=== PATIENT | male | born 1935 | race Caucasian/White ===

== ENCOUNTER 2018-08-10 15:33 | Inpatient (IN) | payer MEDICARE ==
[~2018-08-10] VITALS: Ht 177.8 cm; Wt 65.8 kg
--- NOTE | 2018-08-10 15:35 | NUR ---
AAOX3, BIBRA 88 FROM [place] C/O STERNAL PAIN S/P HEIMLICH MANEUVER, PATIENT WAS CHOKING WHILE EATING HIS OATMEAL, MD CAME AND PERFORMED HEIMLICH MANEUVER. BRUISE NOTED IN THE STERNUM AREA. RR IS EVEN AND UNLABORED WITH NAD NOTED. AWAITING MD FOR EVAL.
[2018-08-10] MEDS ORDERED: MORPHINE SULFATE INJ 4 MG/ML DISP.SYRIN ONE ×2 (16:00→18:01)
[2018-08-10] MEDS ORDERED: MORPHINE SULFATE INJ 2 MG/ML DISP.SYRIN IM ONE (16:00)
[2018-08-10] MEDS ORDERED: HYDROCODONE/APAP 5/325MG 1 EACH TABLET PO ONE (16:00)
--- NOTE | 2018-08-10 16:07 | NUR ---
PATIENT TRANSPORTED FOR CT OF THE CHEST
--- NOTE | 2018-08-10 16:19 | NUR ---
PATIENT DESAT TO 93% FROM 98%. PATIENT PLACED ON NC AT 2L/MIN.
[2018-08-10] MEDS ORDERED: ONDANSETRON HCL/PF 4 MG/2 ML VIAL IVP ONE (16:30)
[2018-08-10] MEDS ORDERED: IV NS 0.9% 1,000 ML BAG IV ONE ×2 (16:30→20:30)
[2018-08-10] MEDS ORDERED: CLINDAMYCIN 600 MG in IV D5W 100 ML IV ONE (16:30)
[2018-08-10] MEDS ORDERED: CEFTRIAXONE 1GM BAG (ER ONLY) 50 ML IV ONE ×2 (16:30→16:53)
[2018-08-10 16:40] LABS: BASOPHILS % (AUTO) 0.6 % (0.0-2.0); EOSINOPHILS % (AUTO) 1.8 % (0.0-6.0); HEMATOCRIT 39 % (39-51); HEMOGLOBIN 13.1 g/dL (13.5-17.5); LYMPHOCYTES # (AUTO) 1.3 /CMM (0.8-4.8); LYMPHOCYTES % (AUTO) 15.7 % (20.0-44.0); MEAN CORPUSCULAR HGB CONC 34 g/dl (31.0-36.0); MEAN CORPUSCULAR VOLUME 96 fL (80-96); MONOCYTES # (AUTO) 0.5 /CMM (0.1-1.30); MONOCYTES % (AUTO) 5.8 % (2.0-12.0); NEUTROPHILS # (AUTO) 6.4 /CMM (1.8-8.9); NEUTROPHILS % (AUTO) 76.1 % (43.0-81.0); PLATELET COUNT (AUTO) 183 /CMM (150-450); RED BLOOD CELL COUNT(AUTO) 4.03 MIL/uL (4.5-6.0); WHITE BLOOD COUNT (AUTO) 8.4 K/uL (4.3-11.0)
[2018-08-10 16:50] LABS: CALCIUM, SERUM 8.9 mg/dL (8.5-10.1); CARBON DIOXIDE 32 mmol/L (21-32); CHLORIDE 106 mmol/L (98-107); CREATININE 1.2 mg/dL (0.6-1.3); GLUCOSE 141 mg/dL (74-106); SODIUM SERUM 141 mmol/L (136-145); UREA NITROGEN, BLOOD 27 mg/dL (7-18)
[2018-08-10] MEDS ORDERED: ONDANSETRON HCL/PF 4 MG/2 ML VIAL ONE (16:53)
--- NOTE | 2018-08-10 17:05 | NUR ---
DR PIERRE AT BS TALKING TO THE FAMILY AT BS.
--- NOTE | 2018-08-10 17:11 | NUR ---
CALLED NURSING SUP. FOR MS BED
--- NOTE | 2018-08-10 17:11 | NUR ---
LA PAGED, [employer]
[2018-08-10] MEDS ORDERED: SILO8CAP2 PO (17:19)
[2018-08-10] MEDS ORDERED: CARB1TAB21 PO (17:19)
[2018-08-10] MEDS ORDERED: SERT100T12 PO (17:19)
[2018-08-10] MEDS ORDERED: NALT50TA PO (17:19)
[2018-08-10] MEDS ORDERED: LOSA50TA39 PO (17:19)
[2018-08-10] MEDS ORDERED: DONE23TA3 PO (17:19)
[2018-08-10] MEDS ORDERED: NALTREXONE PO (17:23)
--- NOTE | 2018-08-10 17:32 | NUR ---
CALLED [facility] TO SEE IF WE COULD TRANSFER PT, SPOKE WITH NURSING COPPER PLATE PRINTER NEERAJ, SHE INFORMED ME THEY HAVE NO BEDS AVAILABLE.
--- NOTE | 2018-08-10 17:53 | NUR ---
MS 329
--- NOTE | 2018-08-10 17:54 | NUR ---
[facility] REPAGED
[2018-08-10] MEDS ORDERED: MORPHINE SULFATE INJ 2 MG/ML DISP.SYRIN IV ONE (18:00)
--- NOTE | 2018-08-10 18:20 | NUR ---
REPORT GIVEN TO CLARA YANES FOR MARIA VICTORIA RM 329
--- NOTE | 2018-08-10 18:30 | NUR ---
STONE BREAKER OPENING & CLOSING NOTES PATIENT ARRIVED TO THE UNIT SLEEPING BUT EASILY AROUSED. PATIENT MOANING AT TIMES DUE TO LEFT SIDE RIB FRACTURES. MORPHINE GIVEN IN THE ER PRIOR TO ARRIVAL TO THE UNIT. PLACED PATIENT ON TELE MONITOR. BEDSIDE RAILS ARE UPX2. BED IS LOCKED AND LOWERED. CALL LIGHT IS WITHIN REACH. IV LINE IS INTACT AND PATENT. WILL ENDORSE CARE TO MACHINE ENGRAVER NURSE FOR MARIA VICTORIA.
[2018-08-10] MEDS ORDERED: ONDANSETRON HCL/PF 4 MG/2 ML VIAL IVP PRN (19:00)
[2018-08-10] MEDS ORDERED: Z GUARD REMEDY 2 OZ OINT TP PRN (19:00)
[2018-08-10] MEDS ORDERED: MORPHINE SULFATE INJ 2 MG/ML DISP.SYRIN IV PRN (19:00)
[2018-08-10] MEDS ORDERED: MAGNESIUM HYDROXIDE 30 ML UDC PO PRN (19:00)
[2018-08-10] MEDS ORDERED: ACETAMINOPHEN 325 MG TABLET PO PRN (19:00)
[2018-08-10] MEDS ORDERED: HYDROCODONE/APAP 5/325MG 1 EACH TABLET PO PRN (19:00)
[2018-08-10] MEDS ORDERED: MAG HYDROX/AL HYDROX/SIMETH 30 ML UDC PO PRN (19:00)
[2018-08-10] MEDS ORDERED: ZOLPIDEM TARTRATE 5 MG TABLET PO PRN (19:00)
--- NOTE | 2018-08-10 19:23 | NUR ---
MS RN RECEIVE PT IN BED. A/O X 3. RESPIRATIONS EVEN AND UNLABORED, NO SOB NOTED, NO DISTRESS, SAFETY MEASURES IN PLACE. WILL CONTINUE TO MONITOR.
[2018-08-10 20:00] VITALS: BP 117/64
--- NOTE | 2018-08-10 20:21 | NUR ---
S/B BY DR. MEDINA PER DR. MEDINA GIVE IV NS 0.9 % NS @ 75 MLS/HR ONCE 1 BAG ONLY NOTED AND CARRIED OUT
[2018-08-10] MEDS ORDERED: IV NS 0.9% 1,000 ML IV PRN (21:30)
[2018-08-10] MEDS ORDERED: NALTREXONE 4.5 MG PO SCH (22:00)
[2018-08-11] VITALS (7 sets, daily range): BP systolic 107–130; BP diastolic 54–71
--- NOTE | 2018-08-11 06:14 | NUR ---
RN CLOSING NOTE ON TELE SB 48'S. ASLEEP AND EASILY AWAKEN. RESPIRATIONS EVEN AND UNLABORED. NOT IN DISTRESS, STABLE. NEEDS ATTENDED AND ANTICIPATED, NO COMPLAIN OF PAIN, AT BEDSIDE. KEPT CLEAN AND DRY AND COMFORT. REPOSITIONED EVERY 2 HOURS. GOOD SKIN CARE PROVIDED, NURSING CARE RENDERED, SAFETY MEASURES IN PLACE, BED IN LOW LOCKED POSITION, CALL LIGHT WITHIN EASY REACH. ENDORSE TO NEXT SHIFT CONTINUITY OF CARE.
[2018-08-11 06:29] LABS: BASOPHILS % (AUTO) 0.6 % (0.0-2.0); EOSINOPHILS % (AUTO) 1.6 % (0.0-6.0); HEMATOCRIT 33 % (39-51); HEMOGLOBIN 11.4 g/dL (13.5-17.5); LYMPHOCYTES # (AUTO) 1.4 /CMM (0.8-4.8); LYMPHOCYTES % (AUTO) 20.7 % (20.0-44.0); MEAN CORPUSCULAR HGB CONC 35 g/dl (31.0-36.0); MEAN CORPUSCULAR VOLUME 95 fL (80-96); MONOCYTES # (AUTO) 0.8 /CMM (0.1-1.30); MONOCYTES % (AUTO) 12.3 % (2.0-12.0); NEUTROPHILS # (AUTO) 4.5 /CMM (1.8-8.9); NEUTROPHILS % (AUTO) 64.8 % (43.0-81.0); PLATELET COUNT (AUTO) 154 /CMM (150-450); RED BLOOD CELL COUNT(AUTO) 3.44 MIL/uL (4.5-6.0); WHITE BLOOD COUNT (AUTO) 6.9 K/uL (4.3-11.0)
[2018-08-11 06:35] LABS: CHOLESTEROL 148 mg/dL (<200); HDL CHOLESTEROL 56 mg/dL (40-60); LDL 82 mg/dL (0-99); TRIGLYCERIDES 72 mg/dL (30-150)
[2018-08-11 06:47] LABS: CALCIUM, SERUM 8.4 mg/dL (8.5-10.1); CARBON DIOXIDE 27 mmol/L (21-32); CHLORIDE 112 mmol/L (98-107); GLUCOSE 107 mg/dL (74-106); MAGNESIUM 1.9 mg/dL (1.8-2.4); PHOSPHORUS 3.8 mg/dL (2.5-4.9); POTASSIUM 3.9 mmol/L (3.5-5.1); SODIUM SERUM 147 mmol/L (136-145); UREA NITROGEN, BLOOD 22 mg/dL (7-18)
[2018-08-11] MEDS: CARBIDOPA/LEVODOPA 25/100 MG 1 UDTAB PO SCH ×2 (09:00→17:00)
[2018-08-11] MEDS: LOSARTAN POTASSIUM 50 MG TABLET PO SCH (09:00)
[2018-08-11] MEDS: IV D5/0.45 NACL 1,000 ML IV PRN (11:34)
[2018-08-11] MEDS: SERTRALINE HCL 50 MG TABLET PO SCH (18:00)
[2018-08-11] MEDS ORDERED: Medication Not On Formulary EA (Sertraline Hcl 100 MG) PO SCH (18:00)
--- NOTE | 2018-08-11 19:28 | NUR ---
ON TELE SB 42'S. ASLEEP AND EASILY AWAKEN. RESPIRATIONS EVEN AND UNLABORED. NOT IN DISTRESS, STABLE. NEEDS ATTENDED AND ANTICIPATED, NO COMPLAIN OF PAIN, AND CAREGIVER AT BEDSIDE. KEPT CLEAN AND DRY AND COMFORT. SAFETY MEASURES IN PLACE, BED IN LOW LOCKED POSITION, CALL LIGHT WITHIN EASY REACH. ENDORSE TO NEXT SHIFT CONTINUITY OF CARE.
--- NOTE | 2018-08-11 19:55 | NUR ---
JEWEL SETTER NOTES RECEIVED PATIENT ON TELE SB 42'S. ASLEEP AND EASILY AWAKEN. RESPIRATIONS EVEN AND UNLABORED. NOT IN DISTRESS, STABLE. NEEDS ATTENDED AND ANTICIPATED, NO COMPLAIN OF PAIN, AND CAREGIVER AT BEDSIDE. KEPT CLEAN AND DRY AND COMFORT. SAFETY MEASURES IN PLACE, BED IN LOW LOCKED POSITION, CALL LIGHT WITHIN EASY REACH.
[2018-08-12 00:07] VITALS: BP 138/57
[2018-08-12 04:00] VITALS: BP 130/56
[2018-08-12] MEDS: IV D5/0.45 NACL 1,000 ML IV PRN (05:56)
[2018-08-12 06:49] LABS: BASOPHILS # (AUTO) 0.1 /CMM (0.0-0.2); BASOPHILS % (AUTO) 0.8 % (0.0-2.0); EOSINOPHILS % (AUTO) 2.3 % (0.0-6.0); HEMATOCRIT 34 % (39-51); HEMOGLOBIN 11.7 g/dL (13.5-17.5); LYMPHOCYTES # (AUTO) 1.3 /CMM (0.8-4.8); LYMPHOCYTES % (AUTO) 19.3 % (20.0-44.0); MEAN CORPUSCULAR HGB CONC 34 g/dl (31.0-36.0); MEAN CORPUSCULAR VOLUME 95 fL (80-96); MONOCYTES # (AUTO) 0.7 /CMM (0.1-1.30); MONOCYTES % (AUTO) 11.2 % (2.0-12.0); NEUTROPHILS # (AUTO) 4.4 /CMM (1.8-8.9); NEUTROPHILS % (AUTO) 66.4 % (43.0-81.0); PLATELET COUNT (AUTO) 137 /CMM (150-450); RED BLOOD CELL COUNT(AUTO) 3.59 MIL/uL (4.5-6.0); WHITE BLOOD COUNT (AUTO) 6.6 K/uL (4.3-11.0)
[2018-08-12 07:11] LABS: CALCIUM, SERUM 8.7 mg/dL (8.5-10.1); CARBON DIOXIDE 28 mmol/L (21-32); CHLORIDE 109 mmol/L (98-107); GLUCOSE 107 mg/dL (74-106); POTASSIUM 3.7 mmol/L (3.5-5.1); SODIUM SERUM 144 mmol/L (136-145); UREA NITROGEN, BLOOD 15 mg/dL (7-18)
--- NOTE | 2018-08-12 07:30 | NUR ---
MS CLARA Opening Notes Patient asleep, resting in bed. Semi-Fowlers position. Aspiration pre-cautions in place. Alert and oriented x3, able to make needs known. External air sampling and monitoring in place: sinus bradycardia in the 40s bpm. No complaints of pain/discomfort at this time. Respirations even and unlabored on room air, no acute distress noted. Peripheral IV to the left forearm arm 20 gauge, intact, patent and infusing fluids as ordered. Patient currently NPO pending swallow evaluation by speech therapist. Updated patient on current plan of care and safety measures. Safety and fall precautions in place: bed in lowest and locked position, side rails up x2, bed alarm on, call light and personal possessions within reach. Will continue to monitor and intervene as needed. Addendum: 08/12/18 at 0807 by CATHLEEN STALLINGS RN Correction: Peripheral IV to the left upper arm 20 gauge.
--- NOTE | 2018-08-12 07:37 | NUR ---
BAILIFF NOTES PATIENT ON TELE SB 42'S. ASLEEP AND EASILY AWAKEN. RESPIRATIONS EVEN AND UNLABORED. NOT IN DISTRESS, STABLE. NEEDS ATTENDED AND ANTICIPATED, NO COMPLAIN OF PAIN, CAREGIVER AT BEDSIDE. KEPT CLEAN AND DRY AND COMFORT. SAFETY MEASURES IN PLACE, BED IN LOW LOCKED POSITION, CALL LIGHT WITHIN EASY REACH. STILL ON NPO FOR SWALLOW EVAL AND SPEECH THERAPY, ENDORSED TO AM NURSE FOR CONTINUITY OF CARE.
[2018-08-12 08:33] VITALS: BP 125/63
[2018-08-12] MEDS: LOSARTAN POTASSIUM 50 MG TABLET PO SCH (08:40)
[2018-08-12] MEDS: CARBIDOPA/LEVODOPA 25/100 MG 1 UDTAB PO SCH ×2 (08:40→17:29)
[2018-08-12] MEDS ORDERED: BARIUM SULFATE 148 GM SUSP.RECON PO ONE (17:16)
[2018-08-12] MEDS ORDERED: BARIUM SULFATE 240 ML ORAL.SUSP PO ONE (17:16)
[2018-08-12] MEDS: SERTRALINE HCL 50 MG TABLET PO SCH (17:30)
--- NOTE | 2018-08-12 19:00 | NUR ---
stars specialist Closing Notes Patient awake, up to chair. Semi-Fowlers position. Aspiration pre-cautions in place. Alert and oriented x3, able to make needs known. External cardiac/vascular sonographer in place: sinus bradycardia in the low 40s bpm. No complaints of pain/discomfort at this time. Respirations even and unlabored on room air, no acute distress noted. Peripheral IV to the left upper arm 20 gauge, intact, patent and infusing fluids as ordered. Patient's home medications taken to pharmacy, receipt in chart. Updated patient on current plan of care and safety measures. Safety and fall precautions in place: bed in lowest and locked position, side rails up x2, bed alarm on, call light and personal possessions within reach. Caregiver and family at bedside. Will endorse to Sharee ELIZABETH for continuity of care.
[2018-08-12 20:00] VITALS: BP 140/61
--- NOTE | 2018-08-12 20:01 | NUR ---
SPOKE TO RUSSELL FROM PHARMACY. PT'S FAMILY MEMBER BROUGHT MEDICATIONS THAT ARE NOT IN A CONTAINER. PER RUSSELL, NOT ALL OF THE HOME MEDS ARE IDENTIFIABLE. WILL BRING UP HOME MEDS THAT HE CAN IDENTIFY
[2018-08-12] MEDS ORDERED: SILODOSIN 8 MG PO SCH (22:00)
[2018-08-12] MEDS ORDERED: DONEPEZIL HCL 23 MG PO SCH (22:00)
[2018-08-13] VITALS: BP 120/73
[2018-08-13 04:00] VITALS: BP 135/57
[2018-08-13] MEDS: IV D5/0.45 NACL 1,000 ML IV PRN (07:02)
[2018-08-13 07:52] LABS: CALCIUM, SERUM 8.6 mg/dL (8.5-10.1); CARBON DIOXIDE 24 mmol/L (21-32); CHLORIDE 107 mmol/L (98-107); CREATININE 0.9 mg/dL (0.6-1.3); GLUCOSE 111 mg/dL (74-106); POTASSIUM 3.7 mmol/L (3.5-5.1); SODIUM SERUM 140 mmol/L (136-145); UREA NITROGEN, BLOOD 16 mg/dL (7-18)
[2018-08-13 08:00] VITALS: BP 135/63
--- NOTE | 2018-08-13 08:10 | NUR ---
TELE/RN CLOSING NOTES PT AWAKE, RESTING COMFORTABLY IN BED. CAREGIVER REMAINS AT BEDSIDE. ON 2L O2 VIA NC, BREATHING EVEN AND UNLABORED. DENIES SOB AND PAIN. IN NO ACUTE DISTRESS. ON TELE MONITOR SHOWING SB 50. REPLACED CONDOM CATHETER BUT IS REMOVED DUE TO PT MOVING IN BED. ATTEMPTED TO REPLACE BUT CAREGIVER REFUSED FOR NOW. STRICT ASPIRATION PRECAUTIONS IMPLEMENTED THROUGHOUT SHIFT. SUCTION SETUP AT BEDSIDE. IV TO RFA PATENT AND INTACT RUNNING IVF ORDERED. NO SIGNIFICANT CHANGES OVERNIGHT. ALL NEEDS MET. TURNED/REPOSITIONED Q2H. HEELS OFFLOADED. KEPT CLEAN AND DRY. BED REMAINS IN LOW/LOCKED POSITION WITH CALL LIGHT IN REACH. BILATERAL UPPER SIDE RAILS IN PLACE. ENDORSED TO DAY SHIFT RN MARIA VICTORIA.
[2018-08-13 08:22] LABS: BASOPHILS % (AUTO) 0.6 % (0.0-2.0); EOSINOPHILS % (AUTO) 1.9 % (0.0-6.0); HEMATOCRIT 33 % (39-51); HEMOGLOBIN 11.4 g/dL (13.5-17.5); LYMPHOCYTES # (AUTO) 1.3 /CMM (0.8-4.8); LYMPHOCYTES % (AUTO) 17.8 % (20.0-44.0); MEAN CORPUSCULAR HGB CONC 35 g/dl (31.0-36.0); MEAN CORPUSCULAR VOLUME 96 fL (80-96); MONOCYTES # (AUTO) 0.8 /CMM (0.1-1.30); MONOCYTES % (AUTO) 11.3 % (2.0-12.0); NEUTROPHILS % (AUTO) 68.4 % (43.0-81.0); PLATELET COUNT (AUTO) 111 /CMM (150-450); RED BLOOD CELL COUNT(AUTO) 3.42 MIL/uL (4.5-6.0); WHITE BLOOD COUNT (AUTO) 7.3 K/uL (4.3-11.0)
--- NOTE | 2018-08-13 08:46 | NUR ---
RN MS OPENING NOTES RECEIVED PATIENT ON BED WITH HOB ELEVATED, WITH LAYOUT MAN ON BEDSIDE. A/O X3 AND ABLE TO MAKE NEEDS KNOWN VERBALLY, SLOW SPEECH. RESPIRATION EVEN AND NON LABORED WITH NO SOB NOTED. DENIES PAIN AND DISCOMFORT. IV SITE ON RIGHT FA RUNNING AT 50 ML/HR, SITE NO S/SX OF INFILTRATION. ABDOMEN SOFT AND NON DISTENDED WITH ACTIVE BOWEL SOUNDS, ON STRICT ASPIRATION WITH NECTAR THICK LIQUID. ALL CONCERNS ATTENDED, PLACED CALL LIGHT WITHIN REACH TO ENSURE SAFETY. WILL CONTINUE TO EVALUATE CARE.
[2018-08-13 08:55] VITALS: BP 135/63
[2018-08-13] MEDS: LOSARTAN POTASSIUM 50 MG TABLET PO SCH (08:55)
[2018-08-13] MEDS: CARBIDOPA/LEVODOPA 25/100 MG 1 UDTAB PO SCH (08:55)
--- NOTE | 2018-08-13 12:57 | NUR ---
MS/MEASURING MACHINE TENDER PATIENT DISCHARGE TO [facility] IN STABLE CONDITION. A/O X 3. NO SIGNS OF ACUTE DISTRESS. NO COMPLAIN OF PAIN OR DISCOMFORT. DISCHARGE EDUCATION PROVIDED TO PATIENT AND CAREGIVER, VERBALIZED UNDERSTANDING. REPORT GIVEN TO CLARA BLUE FROM FACILITY, MADE AWARE PER DISCHARGE INSTRUCTION TO FOLLOW UP WITH PCP AND PT AT SNF. NAME BAND AND IV LINE REMOVED. ALL NEEDS ATTENDED TO. LEFT IN STABLE CONDITION ACCOMPANIED BY 2 HORSE TRAINER VIA RONAKA. CAREGIVER AND AT BEDSIDE MADE AWARE.
== END 2018-08-13 13:30 | DRG 184 ==
LOC: ER 15:38 → TELE 17:56 → MED 08-13 08:01
PROVIDERS: ADMIT Family Medicine; ATTEND Family Medicine
DX: S22.42XA Multiple fractures of ribs, left side, initial encounter for closed fracture (principal); N17.9 Acute kidney failure, unspecified; G20 Parkinson's disease; R73.9 Hyperglycemia, unspecified; F32.9 Major depressive disorder, single episode, unspecified; I25.10 Atherosclerotic heart disease of native coronary artery without angina pectoris; Z87.891 Personal history of nicotine dependence; I10 Essential (primary) hypertension; R07.89 Other chest pain; X58.XXXA Exposure to other specified factors, initial encounter; Y93.89 Activity, other specified; Y92.009 Unspecified place in unspecified non-institutional (private) residence as the place of occurrence of the external cause
CPT/HCPCS: 36415; 71045-TC; 71250-TC; 74230-TC; 80048-TC; 80061-TC; 83735-TC; 84100-TC; 85025-TC; 87040-TC; 87081-TC; 92526; 92611-TC; 97110-TC; 97116-TC; 97530-TC; A4349; G0378; J0696; J2270; J2405; J3490; J7030; J7060